=== PATIENT | female | born 1960 | race Hispanic/Latino ===

== ENCOUNTER 2024-02-07 01:58 | Inpatient (IN) | payer BC, SELFPAY ==
[2024-02-07 02:53] LABS: #Basophils 0.03 10x3/uL (0.0-0.2); %Basophils 0.2 % (0.0-1.0); %Eosinophils 1.4 % (0.0-10.0); %Lymphocytes 7.7 % (21.0-51.0); %Monocytes 5.3 % (0.0-10.0); %Neutrophils 84.8 % (42.0-75.0); Hematocrit 37.1 % (36.0-47.0); Hemoglobin 12.4 g/dL (12.0-16.0); Mean Corpuscular HGB CONC 33.4 g/dL (32.0-36.0); Mean Corpuscular Hemoglobin 31.9 pg (27.0-31.0); Mean Corpuscular Volume 95.4 fL (78.0-98.0); Mean Platelet Volume 10.8 fL (7.4-10.4); Platelet Count 273 10x3/uL (130-400); RBC Distribution Width 13.7 % (11.5-14.5); Red Blood Cell (RBC) Count 3.89 mill/uL (4.20-5.40)
[2024-02-07] MEDS ORDERED: Aspirin Chewable 81 MG TAB ONE (02:58)
[2024-02-07 03:17] LABS: ALT (SGPT) 20 U/L (8-55); AST (SGOT) 17 U/L (5-34); Albumin 3.6 g/dL (3.4-4.8); Alkaline Phosphatase 61 U/L (40-110); Anion Gap 12 mmol/L (10-20); BUN (Urea Nitrogen) 19 mg/dL (9.8-20.1); Bilirubin, Total 0.7 mg/dL (0.2-1.2); Calc. Creatinine Clearance 0 mL/min (70-130); Calcium 9.4 mg/dL (7.8-10.44); Carbon Dioxide 19 mmol/L (23-31); Chloride 117 mmol/L (98-107); Estimated GFR 86; Globulin 3.1 g/dL (2.4-3.5); Glucose 175 mg/dL (80-115); Potassium 3.9 mmol/L (3.5-5.1); Protein, Total 6.7 g/dL (5.8-8.1); Sodium 144 mmol/L (136-145)
[2024-02-07 03:24] LABS: Troponin I 0.023 ng/mL (< 0.028)
[2024-02-07 06:12] LABS: Troponin I 0.166 ng/mL (< 0.028)
[2024-02-07 12:45] LABS: Troponin I 1.403 ng/mL (< 0.028)
[2024-02-07] MEDS: Aspirin 325 mg Enteric Coated Tablet PO SCH (13:39)
[2024-02-07] MEDS: Enoxaparin 40 MG (0.4 mL) SYRINGE SC SCH (13:39)
[2024-02-07] MEDS: Methocarbamol 500 MG TAB PO PRN (17:42)
[2024-02-07] MEDS ORDERED: Communication Order-Pharmacy FS SCH (19:30)
[2024-02-07 20:20] LABS: Hematocrit 38.4 % (36.0-47.0); Hemoglobin 12.7 g/dL (12.0-16.0); Platelet Count 287 10x3/uL (130-400)
[2024-02-07] MEDS: Enoxaparin 100 MG (1 mL) SYRINGE SC SCH (20:31)
[2024-02-08 04:04] LABS: Bacteria/HPF None Seen HPF (None Seen); Bilirubin Negative (Negative); Blood, Urine Negative (Negative); CAUTI Indications for Culture Dysuria,urgency,freq; Clarity Clear (Clear); Glucose, Urine (Dipstick) Normal (Negative); Ketone, Urine Negative (Negative); Leukocyte 25 Leu/uL (Negative); Nitrite Negative (Negative); Protein, Urine (Dipstick) Negative (Neg-Trace); RBC/HPF 0-3 HPF (0-3); Specific Gravity, Urine 1.015 (1.002-1.036); Squamous Epithelial 0-3 HPF (0-3); Urobilinogen Normal mg/dL (Less than 2); WBC/HPF 0-3 HPF (0-3)
[2024-02-08 04:13] LABS: Urine Culture Reflex No No
[2024-02-08 04:44] LABS: #Basophils 0.06 10x3/uL (0.0-0.2); %Basophils 0.6 % (0.0-1.0); %Eosinophils 12.5 % (0.0-10.0); %Monocytes 8.3 % (0.0-10.0); %Neutrophils 51.5 % (42.0-75.0); Hematocrit 38.1 % (36.0-47.0); Hemoglobin 12.7 g/dL (12.0-16.0); Mean Corpuscular HGB CONC 33.3 g/dL (32.0-36.0); Mean Corpuscular Hemoglobin 31.8 pg (27.0-31.0); Mean Corpuscular Volume 95.3 fL (78.0-98.0); Mean Platelet Volume 11.2 fL (7.4-10.4); Platelet Count 255 10x3/uL (130-400); RBC Distribution Width 13.9 % (11.5-14.5)
[2024-02-08 04:51] LABS: Hemoglobin A1c 5.6 % (4.0-6.0)
[2024-02-08 05:06] LABS: ALT (SGPT) 24 U/L (8-55); AST (SGOT) 25 U/L (5-34); Albumin 3.7 g/dL (3.4-4.8); Alkaline Phosphatase 61 U/L (40-110); Anion Gap 12 mmol/L (10-20); BUN (Urea Nitrogen) 16 mg/dL (9.8-20.1); Bilirubin, Total 1.4 mg/dL (0.2-1.2); Calc. Creatinine Clearance 121 mL/min (70-130); Calcium 9.1 mg/dL (7.8-10.44); Carbon Dioxide 26 mmol/L (23-31); Cardiac Risk 3.4 (Less than 4.5); Chloride 108 mmol/L (98-107); Cholesterol 204 mg/dl (< 200 Desired); Estimated GFR 87; Glucose 101 mg/dL (80-115); HDL Cholesterol 60 mg/dL (>60 Neg Risk); LDL Cholesterol, Calculated 121 mg/dL; Magnesium 1.8 mg/dL (1.6-2.6); Potassium 3.2 mmol/L (3.5-5.1); Protein, Total 6.7 g/dL (5.8-8.1); Sodium 143 mmol/L (136-145); Triglycerides 113 mg/dL (Less than 150)
[2024-02-08 05:11] LABS: Troponin I 1.104 ng/mL (< 0.028)
[2024-02-08] MEDS ORDERED: Electrolyte Replacement Protocol 1 EACH FS PRN (06:30)
[2024-02-08] MEDS: Potassium Chloride 20 MEQ TAB PO SCH (06:43)
[2024-02-08] MEDS: Magnesium 2 GM/50 ML(in water) 2 GM in Premix 1 BAG IVPB SCH (08:16)
[2024-02-08] MEDS: Amiodarone 450 MG, Admixture Fee 1 EACH in Dextrose 5% in Water 250 ML IVPB SCH (08:16)
[2024-02-08] MEDS ORDERED: Acetaminophen 325 MG TAB PO PRN (09:01)
[2024-02-08] MEDS: Famotidine/PF 20 mg/2ml Vial SLOW IVP SCH (10:36)
[2024-02-08] MEDS: Aspirin 81 mg Enteric Coated Tablet PO SCH (10:37)
[2024-02-08] MEDS: Sacubitril 24MG/Valsartan 26 MG TAB PO SCH ×2 (10:48→20:49)
[2024-02-08] MEDS: Amiodarone 200 MG TAB PO SCH ×2 (10:49→20:42)
[2024-02-08] MEDS: Furosemide 20 MG TAB PO SCH (10:50)
[2024-02-08] MEDS ORDERED: Communication Order-Pharmacy FS SCH (11:45)
[2024-02-08 12:47] LABS: Potassium 3.6 mmol/L (3.5-5.1)
[2024-02-08] MEDS: Atorvastatin Calcium 40 MG TAB PO SCH (20:42)
[2024-02-08] MEDS: Ondansetron PF 4 MG/2 ML Vial IVP PRN (21:35)
[2024-02-09 04:15] LABS: Magnesium 2.1 mg/dL (1.6-2.6)
[2024-02-09] MEDS: Sodium Chloride 0.9% 1,000 ML IV SCH ×2 (06:08→14:17)
[2024-02-09] MEDS ORDERED: Iopamidol 370 76% 100 ML VIAL ONE (08:57)
[2024-02-09] MEDS ORDERED: fentaNYL 50 mcg/mL 1 mL Vial ONE (09:54)
[2024-02-09] MEDS ORDERED: Midazolam HCl 2 mg/2 ml Vial ONE (09:54)
[2024-02-09] MEDS ORDERED: Nitroglycerin 50 MG/250 ML BOT 0 ML ONE (09:55)
[2024-02-09] MEDS ORDERED: Heparin 10,000 UNITS/ 10 ML VIAL ONE (09:55)
[2024-02-09] MEDS ORDERED: Protamine Sulfate 50 MG/5 ML VIAL ONE (12:37)
[2024-02-09] MEDS ORDERED: Nitroglycerin 0.4 MG TAB (25 Tab Bottle) SL PRN (13:01)
[2024-02-09] MEDS ORDERED: Sodium Chloride 0.9% 200 ML IV PRN (13:01)
[2024-02-09] MEDS ORDERED: Acetaminophen/Codeine 30-300mg Tablet PO PRN ×2 (13:01)
[2024-02-09] MEDS: Furosemide 20 MG TAB PO SCH (13:28)
[2024-02-09] MEDS: Communication Order-Pharmacy FS SCH (13:37)
[2024-02-09] MEDS: Carvedilol 3.125 MG TAB PO SCH (17:06)
[2024-02-10 04:05] LABS: Hematocrit 42.3 % (36.0-47.0); Hemoglobin 14.2 g/dL (12.0-16.0); Platelet Count 304 10x3/uL (130-400)
[2024-02-10 04:24] LABS: Anion Gap 15 mmol/L (10-20); BUN (Urea Nitrogen) 13 mg/dL (9.8-20.1); Calc. Creatinine Clearance 100 mL/min (70-130); Calcium 9.4 mg/dL (7.8-10.44); Carbon Dioxide 24 mmol/L (23-31); Chloride 106 mmol/L (98-107); Estimated GFR 72; Glucose 106 mg/dL (80-115); Potassium 4.3 mmol/L (3.5-5.1); Sodium 141 mmol/L (136-145)
[2024-02-10 06:26] VITALS: BMI 40.1
[2024-02-10] MEDS: Spironolactone 25 MG TAB PO SCH (09:56)
[2024-02-10] MEDS: Carvedilol 3.125 MG TAB PO SCH (10:11)
[2024-02-10 12:13] VITALS: BP 114/64; TEMP 97.4
[2024-02-10] MEDS: Ondansetron ODT 4 MG TAB PO PRN (14:22)
[2024-02-11] MEDS ORDERED: Spironolactone 25 MG TAB PO SCH (08:00)
[2024-02-11] MEDS ORDERED: Apixaban 5 MG TAB PO SCH (09:00)
== END 2024-02-10 17:04 | disposition home or self-care (01) | DRG 281 ==
LOC: ERS 01:58 → ERHOLD 04:10 → IMCU/EMU 11:06 → 2SW 02-08 19:32
PROVIDERS: ADMIT Hospitalist; ATTEND Internal Medicine
PROC: 4A023N7 Measurement of Cardiac Sampling and Pressure, Left Heart, Percutaneous Approach (ICD-10-PCS; principal; 2024-02-09)
PROC: B2111ZZ Fluoroscopy of Multiple Coronary Arteries using Low Osmolar Contrast (ICD-10-PCS; 2024-02-09)
PROC: B2151ZZ Fluoroscopy of Left Heart using Low Osmolar Contrast (ICD-10-PCS; 2024-02-09)
DX: I48.0 Paroxysmal atrial fibrillation (principal); I50.22 Chronic systolic (congestive) heart failure; I21.A1 Myocardial infarction type 2; Z68.41 Body mass index [BMI] 40.0-44.9, adult; I42.8 Other cardiomyopathies; I25.10 Atherosclerotic heart disease of native coronary artery without angina pectoris; E11.9 Type 2 diabetes mellitus without complications; G47.30 Sleep apnea, unspecified; E66.9 Obesity, unspecified; E87.6 Hypokalemia; D72.829 Elevated white blood cell count, unspecified; F41.9 Anxiety disorder, unspecified; I44.7 Left bundle-branch block, unspecified; Z91.013 Allergy to seafood; Z88.1 Allergy status to other antibiotic agents; Z79.899 Other long term (current) drug therapy; Z98.51 Tubal ligation status; Z90.49 Acquired absence of other specified parts of digestive tract
CPT/HCPCS: 36415; 71045; 80048; 80053; 80061; 81001; 83036; 83735; 83880; 84484; 85014; 85018; 85025; 85049; 85347; 93005; 93010; 93306; 93458; 94760; 96365; 96366; 97139; 99152; C1769; J0282; J1644; J1650; J2250; J2405; J2720; J3010; J3475; J3490; J7030; J7070; Q0162; Q9967